=== PATIENT | male | born 1980 | race African-American/Black ===

== ENCOUNTER 2017-12-07 20:39 | Emergency (ER) | payer SELFPAY ==
[2017-12-07 21:38] VITALS: BP 117/66; PULSE 112; TEMP 99.3; BMI 32.5
--- NOTE | 2017-12-07 21:41 | PDOC ---
Rapid Medical Evaluation Time Seen by Provider: 12/07/17 21:34 Medical Evaluation: 12/07/17 21:35 The patient presents with a chief complaint of: Right ear pain for one week I have performed a brief in-person evaluation of this patient. Pertinent physical exam findings: vss, afebrile, no ear drainage. I have ordered the following: None The patient will proceed to the FT for further evaluation. Discharge Disposition - Diagnosis Ear pain, right - Referrals - Patient Instructions - Post Discharge Activity
--- NOTE | 2017-12-07 22:09 | PDOC ---
History of Present Illness - General Chief Complaint: Ear Problem Stated Complaint: EAR PAIN Time Seen by Provider: 12/07/17 21:34 History Source: Patient Exam Limitations: No Limitations - History of Present Illness Initial Comments: 12/07/17 22:08 37-year-old male without any medical problems presents to the emergency department complaining of difficulty hearing to the right ear since last evening without fever, chills, nausea/vomiting, facial pain, rhinorrhea, nasal congestion, neck pain/stiffness, sore throat, chest pain, shortness of breath. Timing/Duration: 24 hours Associated Symptoms: reports: other (right ear;diff hearing) Past History - Past Medical History Allergies/Adverse Reactions: Allergies Allergy/AdvReac Type Severity Reaction Status Date / Time No Known Allergies Allergy Verified 12/07/17 21:38 COPD: No - Suicide/Smoking/Psychosocial Hx Smoking History: Never smoked Have you smoked in the past 12 months: Yes Number of Cigarettes Smoked Daily: 20 Information on smoking cessation initiated: No Hx Alcohol Use: No Drug/Substance Use Hx: No Substance Use Type: None Review of Systems - Review of Systems Able to Perform ROS?: Yes Comments:: 12/07/17 22:05 CONSTITUTIONAL: Absent: fever, chills, diaphoresis, generalized weakness, malaise, loss of appetite HEENT: +right diff hearing Absent: rhinorrhea, nasal congestion, throat pain, throat swelling, difficulty swallowing, mouth swelling, ear pain, eye pain, visual Changes CARDIOVASCULAR: Absent: chest pain, loss of consciousness, palpitations, irregular heart rate, peripheral edema RESPIRATORY: Absent: cough, shortness of breath, dyspnea with exertion, orthopnea, wheezing, stridor, hemoptysis GASTROINTESTINAL: Absent: abdominal pain, abdominal distension, nausea, vomiting, diarrhea, constipation, melena, hematochezia GENITOURINARY: Absent: dysuria, frequency, urgency, hesitancy, hematuria, flank pain, genital pain MUSCULOSKELETAL: Absent: myalgia, arthralgia, joint swelling SKIN: Absent: rash, itching, pallor Is the patient limited Maori proficient: No *Physical Exam - Vital Signs Last Vital Signs Temp Pulse Resp BP Pulse Ox 99.3 F 112 H 18 117/66 100 12/07/17 21:36 12/07/17 21:36 12/07/17 21:36 12/07/17 21:36 12/07/17 21:36 - Physical Exam Comments: 12/07/17 22:05 GENERAL: Well developed, well nourished. Awake and alert. No acute distress. HEENT: RIght: TM; wnl, Canal +stenotic with mild erythematous Normocephalic, atraumatic. PERRLA, EOMI. No conjunctival pallor. Sclera are non- icteric. Moist mucous membranes. Oropharynx is clear. NECK: Supple. Full ROM. No JVD. Carotid pulses 2+ and symmetric, without bruits. No thyromegaly. No lymphadenopathy. CARDIOVASCULAR: Regular rate and rhythm. No murmurs, rubs, or gallops. Distal pulses are 2+ and symmetric. PULMONARY: No evidence of respiratory distress. Lungs clear to auscultation bilaterally. No wheezing, rales or rhonchi. SKIN: Warm and dry. Normal capillary refill. No rashes. No jaundice. *DC/Admit/Observation/Transfer Diagnosis at time of Disposition: Ear pain, right Right otitis externa Qualifiers: Otitis externa type: noninfectious Noninfectious otitis externa type: other type Chronicity: acute Qualified Code(s): H60.591 - Other noninfective acute otitis externa, right ear - Discharge Dispostion Disposition: HOME Condition at time of disposition: Stable Admit: No - Referrals Referrals: Melanie Herrera MD [Primary Care Provider] - - Patient Instructions Printed Discharge Instructions: DI for Otitis Externa Additional Instructions: Ofloxacin 6 gtts right ear three times a day Tylenol alternating with motrin as needed for pain Return to the ER for severe/persistent/worsening symptoms Follow up with ENT within 48 hours - Post Discharge Activity
[2017-12-07] MEDS ORDERED: OFLOXACIN 0.3% OTIC SOLUTION 5 ML BOTTLE AD ONE (22:10)
== END 2017-12-07 22:39 | disposition home or self-care (01) ==
LOC: JERFT 20:39
DX: H60.591 Other noninfective acute otitis externa, right ear (principal)
CPT/HCPCS: 99281-25

== ENCOUNTER 2018-05-04 09:28 | Day surgery (SDC) | payer OTHER ==
[2018-05-04 09:40] VITALS: BMI 32.6
[2018-05-04] MEDS ORDERED: SODIUM CHLORIDE 1,000 ML IV STA (09:52)
[2018-05-04] MEDS ORDERED: ACETAMINOPHEN 1000 MG/100 ML VIAL (NON FORMULARY) IVPB ONE ×2 (09:52→16:30)
[2018-05-04] MEDS ORDERED: ACETAMINOPHEN INJECTION 100 ML IVPB ONE ×2 (10:02→16:32)
--- NOTE | 2018-05-04 10:03 | PDOC ---
History of Present Illness - History of Present Illness Initial Comments: 05/04/18 10:12 "The patient is a 38 year old male, with a significant PMH of inguinal hernia ( diagnosed by Dr. Geiger [phone]) who presents to the emergency department with right sided groin pain which worsened last night. The patient denies any recent injuries or trauma. The patient denies any recent strenuous or heavy lifting. States that he has had the pain for several months intermittently, but the pain has been constant since last night. Denies N/V. Denies abdominal distention. No prior abdominal surgeries. The patient denies chest pain, shortness of breath, headache and dizziness. Denies fever, chills, nausea, vomit, diarrhea and constipation. Denies dysuria, frequency, urgency and hematuria. Allergies: NKA Past surgical history: None. Social history: No reported GI Surgeon: Dr. Geiger " 05/04/18 10:13 <Espinoza Rowan - Last Filed: 05/04/18 10:13> <Lit Norris - Last Filed: 05/04/18 10:19> - General Chief Complaint: Pain Stated Complaint: GROIN PAIN Time Seen by Provider: 05/04/18 09:37 Past History - Past Medical History COPD: No - Suicide/Smoking/Psychosocial Hx Smoking History: Current every day smoker Have you smoked in the past 12 months: Yes Number of Cigarettes Smoked Daily: 10 Information on smoking cessation initiated: Yes Hx Alcohol Use: No Drug/Substance Use Hx: No Substance Use Type: None <Espinoza Rowan - Last Filed: 05/04/18 10:13> <Lit Norris - Last Filed: 05/04/18 10:19> - Past Medical History Allergies/Adverse Reactions: Allergies Allergy/AdvReac Type Severity Reaction Status Date / Time No Known Allergies Allergy Verified 05/04/18 09:35 Home Medications: Ambulatory Orders Ofloxacin Otic [Floxin Otic -] 10 drop AD TID #80 drops 12/07/17 Review of Systems - Review of Systems Comments:: 05/04/18 10:12 "GENERAL/CONSTITUTIONAL: No fever or chills. No weakness. HEAD, EYES, EARS, NOSE AND THROAT: No change in vision. No ear pain or discharge. No sore throat. CARDIOVASCULAR: No chest pain or shortness of breath. RESPIRATORY: No cough, wheezing, or hemoptysis. GASTROINTESTINAL: (+) Right sided groin pain. No nausea, vomiting, diarrhea or constipation. GENITOURINARY: No dysuria, frequency, or change in urination. MUSCULOSKELETAL: No joint or muscle swelling or pain. No neck or back pain. SKIN: No rash NEUROLOGIC: No headache, vertigo, loss of consciousness, or change in strength/ sensation. ENDOCRINE: No increased thirst. No abnormal weight change. HEMATOLOGIC/LYMPHATIC: No anemia, easy bleeding, or history of blood clots. ALLERGIC/IMMUNOLOGIC: No hives or skin allergy. " <Ou,Espinoza - Last Filed: 05/04/18 10:13> *Physical Exam - Vital Signs Last Vital Signs Temp Pulse Resp BP Pulse Ox 98.4 F 84 18 131/92 99 05/04/18 09:33 05/04/18 09:33 05/04/18 09:33 05/04/18 09:33 05/04/18 09:33 - Physical Exam Comments: 05/04/18 10:00 "GENERAL: Awake, alert, and fully oriented, in no acute distress. HEAD: No signs of trauma EYES: PERRLA, EOMI, sclera anicteric, conjunctiva clear ENT: Auricles normal inspection, hearing grossly normal, nares patent, oropharynx clear without exudates. Moist mucosa NECK: Nontender, no stepoffs, Normal ROM, supple, no lymphadenopathy, JVD, or masses LUNGS: Breath sounds equal, clear to auscultation bilaterally. No wheezes, and no crackles HEART: Regular rate and rhythm, normal S1 and S2, no murmurs, rubs or gallops ABDOMEN: Soft, nontender, normoactive bowel sounds. No guarding, no rebound. No masses : small palpable mass R groin, mildly tender, no scrotal masses or tenderness EXTREMITIES: Normal range of motion, no edema. No clubbing or cyanosis. No cords, erythema, or tenderness NEUROLOGICAL: Cranial nerves II through XII intact. 5/5 strength and sensation in all extremities, Normal speech, normal gait, normal cerebellar function SKIN: Warm, Dry, normal turgor, no rashes or lesions noted. " <Ou,Espinoza - Last Filed: 05/04/18 10:13> - Vital Signs Last Vital Signs Temp Pulse Resp BP Pulse Ox 98.4 F 84 18 131/92 99 05/04/18 09:33 05/04/18 09:33 05/04/18 09:33 05/04/18 09:33 05/04/18 09:33 <Lit Norris - Last Filed: 05/04/18 10:19> ED Treatment Course - RADIOLOGY Radiology Studies Ordered: Category Date Time Status ABDOMEN & PELVIS CT WITH CONTR [CT] Stat CT Scan 05/04/18 09:52 Ordered <Espinoza Rowan - Last Filed: 05/04/18 10:13> Medical Decision Making - Medical Decision Making 05/04/18 09:58 38 M with h/o R inguinal hernia presenting with pain in R groin. Hernia does not appear incarcerated on exam and pt with no clinical signs of obstruction. - Labs - Consult Dr. Geiger 05/04/18 10:[address] Geiger, who plans to take pt to OR today for inguinal hernia repair. Pt NPO, pre-op labs ordered. <Espinoza Rowan - Last Filed: 05/04/18 10:13> *DC/Admit/Observation/Transfer - Discharge Dispostion Decision to Admit order: Yes - Attestations Physician Attestion: 05/04/18 10:14 I, Dr. Espinoza Rowan MD, attest that this document has been prepared under my direction and personally reviewed by me in its entirety. I further attest, that it accurately reflects all work, treatment, procedures and medical decision -making performed by me. <Espinoza Rowan - Last Filed: 05/04/18 10:13> - Attestations Scribe Attestion: 05/04/18 10:19 Documentation prepared by Lit Norris, acting as medical staff manager for Espinoza Rowan MD. <Lit Norris - Last Filed: 05/04/18 10:19> Diagnosis at time of Disposition: Right inguinal hernia - Referrals Referrals: ON STAFF,NOT [Primary Care Provider] - - Patient Instructions - Post Discharge Activity
[2018-05-04 10:37] LABS: BASO % 0.9 % (0-2.0); EOS % 1.7 % (0-4.5); HEMATOCRIT 41.9 % (35.4-49); HEMOGLOBIN 14.3 GM/dL (11.7-16.9); LYMPH % 39.4 % (8-40); MCH 34.4 pg (25.7-33.7); MCHC 34.1 g/dl (32.0-35.9); MEAN CELL VOLUME 100.9 fl (80-96); MEAN PLT VOLUME 7.6 fl (7.5-11.1); MONO % 13.1 % (3.8-10.2); NEUT % 44.9 % (42.8-82.8); PLATELET COUNT 235 K/MM3 (134-434); RBC 4.15 M/mm3 (4.00-5.60); RDW 13.4 % (11.9-15.9)
[2018-05-04 10:50] LABS: INR 0.98 (0.82-1.09); PROTHROMBIN TIME (PATIENT) 11.1 SEC (9.7-13.0)
[2018-05-04 10:53] LABS: ACTIVATED PTT 24.7 SECONDS (25.2-36.5)
[2018-05-04 11:00] LABS: ALBUMIN 3.8 g/dl (3.4-5.0); ALK PHOS 44 U/L (45-117); ANION GAP 8 (8-16); BILIRUBIN,TOTAL 0.6 mg/dL (0.2-1.0); BLOOD UREA NITROGEN 8 mg/dL (7-18); CALCIUM 8.9 mg/dL (8.5-10.1); CHLORIDE 105 mmol/L (98-107); CO2 25 mmol/L (21-32); CREATININE 0.9 mg/dL (0.7-1.3); GLUCOSE,RANDOM 96 mg/dL (74-106); SGOT/AST 39 U/L (15-37); SGPT/ALT 20 U/L (12-78); SODIUM 138 mmol/L (136-145)
[2018-05-04] MEDS ORDERED: ROPIVACAINE HCL 0.5% 30ML VIAL ONE (12:59)
[2018-05-04] MEDS ORDERED: DEXAMETHASONE SOD PHOSPHATE/PF 10 MG/ML SDV ONE (12:59)
[2018-05-04] MEDS ORDERED: MIDAZOLAM HCL 2 MG/2 ML SINGLE DOSE VIAL ONE ×2 (13:00)
[2018-05-04] MEDS ORDERED: BUPIVACAINE HCL/PF 0.5% (5MG/ML) 10 ML VIAL ONE (13:28)
--- NOTE | 2018-05-04 13:29 | HP ---
Admitting History and Physical - Admission Chief Complaint: Right groin pain History of Present Illness: 38 male with right inguinal hernia presents for increased right groin pain No fevers No vomiting History Source: Patient Limitations to Obtaining History: No Limitations - Smoking History Smoking history: Current every day smoker Have you smoked in the past 12 months: Yes Aproximately how many cigarettes per day: 10 - Alcohol/Substance Use Hx Alcohol Use: No Home Medications - Allergies Allergies/Adverse Reactions: Allergies Allergy/AdvReac Type Severity Reaction Status Date / Time No Known Allergies Allergy Verified 05/04/18 09:35 - Home Medications Home Medications: Ambulatory Orders Ofloxacin Otic [Floxin Otic -] 10 drop AD TID #80 drops 12/07/17 Family Disease History - Family Disease History Family History: Unremarkable Review of Systems - Review of Systems Constitutional: denies: Chills, Fever Neck: reports: No Symptoms Cardiovascular: reports: No Symptoms Respiratory: reports: No Symptoms Gastrointestinal: reports: Abdominal Pain (Right groin) Pain Intensity: 4 Physical Examination Vital Signs: Vital Signs Temperature 98.4 F 05/04/18 09:33 Pulse Rate 84 05/04/18 09:33 Respiratory Rate 18 05/04/18 09:33 Blood Pressure 131/92 05/04/18 09:33 O2 Sat by Pulse Oximetry (%) 99 05/04/18 09:33 Constitutional: Yes: No Distress Neck: Yes: WNL Cardiovascular: Yes: WNL Respiratory: Yes: Regular Gastrointestinal: Yes: Soft, Other (Right groin pain). No: Tenderness, Rebound Neurological: Yes: Alert, Oriented Labs: CBC, BMP 05/04/18 10:30 05/04/18 10:30 Problem List - Problems (1) Right inguinal pain Code(s): R10.31 - RIGHT LOWER QUADRANT PAIN (2) Right groin pain Code(s): R10.31 - RIGHT LOWER QUADRANT PAIN (3) Right inguinal hernia Code(s): K40.90 - UNIL INGUINAL HERNIA, W/O OBST OR GANGR, NOT SPCF RECUR Assessment/Plan Right inguinal hernia with pain NPO For robotic possible open repair with possible mesh
[2018-05-04] MEDS ORDERED: ROCURONIUM BROMIDE 50 MG/5 ML VIAL ONE ×2 (13:40→14:38)
[2018-05-04] MEDS ORDERED: fentaNYL CITRATE 250 MCG/5 ML VIAL ONE ×2 (13:40→14:39)
[2018-05-04] MEDS ORDERED: PROPOFOL 20 ML ONE (13:40)
[2018-05-04] MEDS ORDERED: ceFAZolin SODIUM 1 GM VIAL IVPB ONE (13:56)
[2018-05-04] MEDS ORDERED: NEOSTIGMINE METHYLSULFATE 0.5 MG/ML - 10 ML MDV ONE (15:53)
[2018-05-04] MEDS ORDERED: GLYCOPYRROLATE 0.2 MG/1 ML VIAL ONE (15:53)
[2018-05-04] MEDS ORDERED: BUPIVACAINE HCL/PF 0.5% (5MG/ML) 10 ML VIAL IJ ONE (15:58)
[2018-05-04] MEDS ORDERED: ACETAMINOPHEN 1000 MG/100 ML VIAL (NON FORMULARY) IVPB PRN (16:19)
[2018-05-04] MEDS ORDERED: ONDANSETRON 4 MG/2 ML VIAL IVPUSH PRN (16:19)
--- NOTE | 2018-05-04 16:21 | OP ---
Operative Note - Note: Operative Date: 05/04/18 Pre-Operative Diagnosis: Right incarcerated inguinal hernia and umbilical hernia Operation: Robotic Right inguinal hernia repair and laproscopic umbilical hernia repair Surgeon: Denys Geiger Game Producer: Lit Guzman Anesthesia: General Estimated Blood Loss (mls): 10 Operative Report Dictated: Yes
--- NOTE | 2018-05-04 16:22 | SURG ---
Surgery Material Flow Analyst Note Material Flow Analyst: Lit Guzman PA-C Date of Service: 05/04/18 Diagnosis: Incarcerated Right inguinal hernia and umbilical hernia Procedure: Robotic assisted Right inguinal hernia repair, and laproscopic umbilical hernia repair I was present for the entirety of the operative procedure. For further detail, please refer to operative report.
[2018-05-04] MEDS ORDERED: LACTATED RINGERS SOLUTION 1,000 ML IV SCH (16:30)
--- NOTE | 2018-05-04 16:39 | SPEC ---
DATE OF OPERATION: 05/04/2018 SURGEON: Denys Geiger MD SECURITY FIELD SUPERVISOR: Lit Guzman PA-C and KIN Knight PREOPERATIVE DIAGNOSIS: Right inguinal hernia with pain. POSTOPERATIVE DIAGNOSES: Right inguinal hernia causing pain and umbilical hernia. PROCEDURES: 1. Robotic right inguinal hernia repair with mesh. 2. Laparoscopic umbilical hernia repair. SPECIMEN: None. ESTIMATED BLOOD LOSS: 5 mL DRAINS: Shell. ANESTHESIA: GET. REASON FOR PROCEDURE: This is a 38-year-old gentleman who presented to the emergency room. He was known to have a right inguinal hernia and developed increasing pain for which he proceeded to the emergency room. He was examined and noted to have a right inguinal hernia causing pain. Because of this, he was consented for robotic, possible open repair of his right inguinal hernia, possible bilateral, possible open with mesh. The risks and benefits of the procedure were explained. RISKS AND BENEFITS: The risks and benefits of Robotic, possible open right inguinal hernia repair, possible bilateral inguinal hernia repair, with mesh were explained. These included bleeding, infection, recurrence of hernia, HI, DVT, PE, new hernia, mesh infection, injury to surrounding structures including the colon, bowel, bladder, ureter, spermatic cord, spermatic vessels, vas deferens, vessel injury, nerve injury, testicular injury including atrophy and possible loss of the testicle, and as some of the possible complications. The patient understood and signed informed consent. DESCRIPTION OF PROCEDURE: The patient was placed supine on the operating room table. Patient underwent general endotracheal intubation. A Shell catheter was inserted by the nursing staff. The arms were tucked at the side, and he was placed on a beanbag device. The abdomen was prepped and draped in the usual sterile fashion. A time-out was performed. A periumbilical incision was made, and entrance into the abdominal cavity was obtained using an 8-mm robotic optical trocar under direct visualization with a laparoscope. Pneumoperitoneum was established. Subsequently, two additional 8-mm trocars were placed, one approximately 6-7 cm to the left of the umbilicus and one 6-7 cm to the right of the umbilicus. The patient was placed in steep Trendelenburg, [id number] position. The robot was brought over the field and docked. Dissection was performed at the console. The peritoneum was opened using robotic EndoShears. The preperitoneal space over the right inguinal region was dissected. The epigastric vessels were identified. These were dissected towards the anterior abdominal wall. Dissection in the preperitoneal space was continued from the medial umbilical ligament towards the anterior-superior iliac spine. Medially, dissection was performed until Earl's ligament and the pubis were identified. Lateral to this, the spermatic cord structures including the vas deferens were identified. The contents of the hernia sac were identified and dissected down to the retroperitoneum. At this point, hemostasis was identified. Again, all of the hernia contents were noted to be completely dissected and noted to have no retraction back to its original position. A Symbotex mesh was then chosen, irrigated, and inserted into the abdominal cavity to cover the entire myopectineal orifice. This mesh was secured medially at the pubis and superolaterally to the abdominal wall with sutures. The mesh was noted to be in good position. The hernia was again noted to be fully reduced and without any tension. At this point, the peritoneal flap was closed using a 2-0 V-Loc suture. Again, hemostasis was identified. All needles were removed from the field, and the count was confirmed to be correct. The robotic instruments were removed. The robot was undocked and removed from the operative field. The patient was placed supine. Pneumoperitoneum was desufflated. All trocars were removed. All incision sites were irrigated. Marcaine was injected into all incision sites. Hemostasis was noted at all incision sites. All skin incisions were closed using 4-0 Biosyn. Sterile dressings were applied. The Shell catheter was removed. The patient tolerated the procedure well and was transferred to the recovery room in stable condition. In addition, at the beginning of the case, an umbilical hernia was noted. This was used to gain access to the abdomen and to place the initial trocar. At the end of the case, the umbilical hernia was closed laparoscopically using a 0 Vicryl suture with a Sidney-Lenore device. Patient tolerated the procedure well, transferred to recovery room in stable condition. Susana [id number]
[2018-05-04 18:13] VITALS: TEMP 98
[2018-05-04 18:20] VITALS: PULSE 67
[2018-05-04] MEDS ORDERED: oxyCODONE HCL 5 MG TABLET PO PRN (18:20)
[2018-05-04] MEDS ORDERED: oxyCODONE HCL 5 MG TABLET ONE (18:23)
[2018-05-04 19:52] VITALS: BP 116/74
== END 2018-05-04 19:40 | disposition home or self-care (01) ==
LOC: JER 09:28 → JASUSAT 10:40
PROVIDERS: ATTEND Surgery
PROC: 0WUF4JZ Supplement Abdominal Wall with Synthetic Substitute, Percutaneous Endoscopic Approach (ICD-10-PCS; 2018-05-04)
PROC: 8E0W4CZ Robotic Assisted Procedure of Trunk Region, Percutaneous Endoscopic Approach (ICD-10-PCS; 2018-05-04)
PROC: 0WQF4ZZ Repair Abdominal Wall, Percutaneous Endoscopic Approach (ICD-10-PCS; principal; 2018-05-04 12:00)
DX: K40.90 Unilateral inguinal hernia, without obstruction or gangrene, not specified as recurrent (principal); K42.9 Umbilical hernia without obstruction or gangrene
CPT/HCPCS: 49652; S2900; 36415; 80053; 83605; 85025; 85610; 85730; 86850; 86900; 86901; 94760; 99283-25; J0131; J7030